=== PATIENT | female | born 1995 ===

== ENCOUNTER → 2020-11-18 09:04 | Outpatient (BNVA) | payer OTHER, SELFPAY | PROVIDERS: Visit Provider Obstetrics & Gynecology | DX: N83.209 Unspecified ovarian cyst, unspecified side (principal) | CPT/HCPCS: 99212 ==

== ENCOUNTER 2020-12-02 13:02 | Outpatient (REF) | payer OTHER, SELFPAY ==
--- NOTE | ~2020-12-02 | US_ITS ---
EXAMINATION: US PELVIS TRANSVAGINAL CLINICAL INFORMATION: Ovarian cyst. COMPARISON: None. TECHNIQUE: Transcutaneous and transvaginal pelvic ultrasound. Transvaginal scanning was performed after voiding to better evaluate the endometrium and adnexa. FINDINGS: The uterus measures 8.4 x 4.1 x 4.7 cm. The uterus is anteverted. No suspicious abnormalities region of the cervix. The uterine contour is smooth. The endometrium measures 0.3 cm. IUD appears in good position. No focal abnormalities within the myometrium. The right ovary measures approximately 3.5 x 2.4 x 2.4 cm. The calculated right ovarian volume is approximately 10.6 mL. Within the right ovary, there appears be a corpus luteal cyst measuring 1.6 x 1.2 x 1.3 cm in size. Normal vascularity is present. The left ovary measures 2.6 x 2.5 x 1.7 cm. The calculated left ovarian volume is approximately 5.8 mL. No abnormal left adnexal masses. There is normal vascularity present. There is a small amount of free pelvic fluid. US/US pelvic and transvaginal IMPRESSION: IUD in place. Right corpus luteal cyst. Small amount of free fluid in the cul-de-sac.
== END 2020-12-02 13:03 | disposition home or self-care (01) ==
LOC: HO.US 13:02
PROVIDERS: Visit Provider Obstetrics & Gynecology
DX: N83.209 Unspecified ovarian cyst, unspecified side (principal)
CPT/HCPCS: 76830; 76856

== ENCOUNTER → 2020-12-09 11:47 | Outpatient (BNVA) | payer OTHER, SELFPAY | PROVIDERS: Visit Provider Obstetrics & Gynecology ==

== ENCOUNTER 2021-02-19 14:30 | Outpatient (REF) | payer OTHER, SELFPAY ==
[2021-02-20 12:59] LABS: CT PCR NOT DETECTED (Not Detect.); NG PCR NOT DETECTED (Not Detect.)
[2021-02-20 13:03] LABS: BV Int Neg Control Negative (Negative); BV Int Pos Control Positive (Positive)
== END 2021-02-19 14:31 | disposition home or self-care (01) ==
LOC: HO.LAB 14:30
PROVIDERS: Visit Provider Advanced Practice Midwife
DX: Z01.419 Encounter for gynecological examination (general) (routine) without abnormal findings (principal); Z11.3 Encounter for screening for infections with a predominantly sexual mode of transmission; Z20.2 Contact with and (suspected) exposure to infections with a predominantly sexual mode of transmission
CPT/HCPCS: 87480; 87491; 87510; 87591; 87660; 88142

== ENCOUNTER 2021-12-30 11:59 | Emergency (ER) | payer OTHER, SELFPAY ==
--- NOTE | ~2021-12-30 | US_ITS ---
EXAMINATION: US OBSTETRICAL ULTRASOUND CLINICAL INFORMATION: Vaginal bleeding. COMPARISON: None. LMP: Unknown. Gestational age by maternal dates is unknown. Estimated date of delivery by maternal dates is unknown. TECHNIQUE: Routine transabdominal imaging of pelvis is performed. FINDINGS: There is a single intrauterine gestational sac with visible yolk sac, embryo/fetus, and cardiac activity. There is no significant subchorionic hemorrhage or hematoma. HR: 169 beats per minute. CRL (crown rump length): 1.44 cm with gestational age of 7 weeks 6 days +/- 4 days). LETI (estimated date of delivery): 08/12/2022 +/- 4 days. MATERNAL ADNEXA: The right maternal ovary measures 8.0 x 6.3 x 6.0 cm. There is anechoic cyst measuring 6.7 x 5.5 x 5.6 cm. Normal Doppler flow seen. The left maternal ovary measures 4.7 x 3.6 x 3.4 cm. There is anechoic cyst measuring 3.1 x 3.0 x 2.8 cm. Normal Doppler flow seen. There is no significant maternal adnexal mass. No maternal pelvic ascites. US/US OB <= 14 weeks fetus IMPRESSION: 1. Single intrauterine gestation with ultrasound gestational age of 7 weeks 6 days +/- 4 days. 2. Estimated date of delivery is 08/12/2022 +/- 4 days. 3. No maternal adnexal mass or pelvic ascites.
[2021-12-30 13:36] VITALS: BP 114/61; PULSE 80; RESP 18; TEMP 36.3; O2SAT 100; BMI 25.7
[2021-12-30 14:40] LABS: MANUAL DIFF FLAG NO
[2021-12-30 14:41] LABS: Basophils Percent Auto 0.3 % (0-2); Eosinophils Percent Auto 0.1 % (0-4); Hematocrit 36.8 % (37.0-47.0); Hemoglobin 12.1 g/dl (12.0-16.0); Imm Gran Abs Auto 0.01 X10*3/uL (0.00-0.03); Imm Gran Pct Auto 0.1 % (0.0-0.4); Lymphocytes Absolute Auto 1.7 X10*3/uL (1.2-4.9); Lymphocytes Percent Auto 21.9 % (20-40); Mean Corpuscular HGB Conc 32.9 g/dl (31.0-35.0); Mean Corpuscular Hemoglobin 27.6 pg (27.0-33.0); Mean Corpuscular Volume 83.8 fL (80.0-98.0); Mean Platelet Volume 10.5 fL (9.4-12.3); Monocytes Absolute Auto 0.9 X10*3/uL (0.1-1.2); Neutrophils Absolute Auto 5.1 x10*3/uL (2.0-8.3); Neutrophils Percent Auto 66.6 % (45-73); Platelet Count 280 X10*3/uL (160-400); Red Blood Count 4.39 X10*6/uL (4.20-5.50); Red Cell Distribution Width 12.7 % (11.0-16.0); White Blood Count 7.7 X10*3/uL (4.8-10.8)
[2021-12-30 14:42] LABS: UPreg QC Valid YES; Urine Pregnancy POSITIVE (NEGATIVE)
[2021-12-30 14:56] LABS: Alanine Aminotransferase 19 U/L (0-31); Albumin Level 4.4 g/dL (3.5-5.0); Alkaline Phosphatase 87 U/L (39-117); Anion Gap 11 (12-20); Aspartate Amino Transferase 16 U/L (5-31); Bilirubin Total 0.2 mg/dL (0.0-1.0); Blood Urea Nitrogen 7 mg/dL (9-16); Calcium 9.9 mg/dL (8.4-10.2); Carbon Dioxide 25 mmol/L (22-29); Chloride 105 mmol/L (96-108); Estimated Glomerular Filt Rate > 60; Glucose Random 91 mg/dL (60-115); Potassium 3.9 mmol/L (3.3-5.1); Sodium 137 mmol/L (135-145)
[2021-12-30 15:27] LABS: HCG Quantitative 67378 mIU/mL
--- NOTE | 2021-12-30 15:33 | ED.PREGNANCY ---
HPI - General Chief complaint: Vaginal Bleeding Stated complaint: w/ vaginal bleeding Time Seen by Provider: 12/30/21 15:32 Source: patient Mode of arrival: ambulatory Limitations: no limitations History of Present Illness HPI Narrative: 26 yo female who is 6 weeks sent to the ER for evaluation of intermittent vaginal spotting for the last 12 days. She reports since 12/18 she went to [facility] ER with vaginal bleeding and she was found to be . She had her IUD removed on 12/21 by her provider at [facility]. She had increased bleeding 2 days after that which improved and then restarted again last week. She went back to [facility] - she was told everything was alright. She reports ongoing bleeding today. She reports moderate amount this morning, and tapered off today. No vaginal discharge. She has had some intermittnet mild cramping as well, right > left - none at this time. MD Complaint: abdominal pain and vaginal bleeding Onset (ago): day(s) (12) Pain Consistency: intermittent Location: pelvis Severity: moderate Quality: Aching Radiation: pelvis Relieving factors: none Exacerbating factors: none Associated symptoms: nausea and vaginal bleeding Vaginal discharge: none Vaginal bleeding: light and heavy Patient : Yes OB History - Previous Pregnancies: miscarriage Related Data : 3 Para: 1 Total number of abortions (spontaneous and elective): 1 Home Medications Medication Instructions Recorded Confirmed levonorgestrel 20 mcg/24 hours (7 INTRAUTERINE 11/18/20// yrs) 52 mg intrauterine device (Mirena) Allergies Allergy/AdvReac Type Severity Reaction Status Date / Time No Known Allergies Allergy Verified 12/30/21 13:36 [No Known Allergies*] Review of Systems Review of Systems: Constitutional: No Fever, No Chills ENT/Mouth: No sore throat, No Rhinorrhea, No Swallowing Difficulty Cardiovascular: No Chest Pain, No SOB Respiratory: No Cough, No Sputum Gastrointestinal: No Nausea, No Vomiting, No Diarrhea, + abdominal Pain, No Hematochezia, No Melena Genitourinary: No Dysuria, No Urinary Frequency, No Hematuria, +Vaginal bleeding Musculoskeletal: No joint pain, No Myalgias Skin: No Skin Lesions, No rash Neuro: No Weakness, No Numbness, No Dizziness, No Headache Heme/Lymph: No Bruising, No Lymphadenopathy PMFSH Past Medical History : 3 Para: 1 Total number of abortions (spontaneous and elective): 1 Social History Social History (Updated 02/19/21 @ 14:42 by Neema Ward [facility]) Alcohol intake: never Patient Tobacco Use Status: Never used Tobacco Smoked in Last 30 Days: No Use of substances other than those prescribed or required for medical reasons: No Advance Directives: No Advance Directives Information Provided: No Patient : Yes Gender identity: Female Physical Exam Vital Signs: Vital Signs: Last Vital Signs Temp 97.3 F 12/30/21 13:36 Pulse 76 12/30/21 16:53 Resp 18 12/30/21 16:53 BP 102/61 12/30/21 16:53 Pulse Ox 100 12/30/21 16:53 BMI result Body Mass Index 25.7 Appearance: Alert. Oriented X3. No acute distress. Eyes: Pupils equal, round and reactive to light. ENT: Pharynx normal. Neck: Normal inspection. Neck supple. CVS: Normal heart rate and rhythm. Pulses normal. Respiratory: No respiratory distress. Breath sounds normal. Abdomen: Soft and nontender. No suprapubic tenderness. +BS x4. pelvic deferred. Skin: Skin warm and dry. Normal skin color. Normal skin turgor. No rashes. Extremities: No lower extremity edema. Neuro: Oriented X 3. Nonfocal. grossly normal. Course Course Course Narrative: 26 y/o female with intermittent vaginal bleeding who is 6 weeks . No current abdominal pain or cramping. HCG is 67,378, no known prior. Will try to get [employer] records. Blood type O+. OB U/S pending. Reevaluation(s) Reevaluation #1: Signed out to Lashanda ALVAREZ who will follow up U/S. MDM - OB/Uterine Contractions Lab Data Result diagrams: 12/30/21 14:29 12/30/21 14:28 Labs: Lab Results 12/30/21 12/30/21 12/30/21 Range/Units 14:26 14:28 14:28 WBC (4.8-10.8) X10*3/uL RBC (4.20-5.50) X10*6/uL Hgb (12.0-16.0) g/dl Hct (37.0-47.0) % MCV (80.0-98.0) fL MCH (27.0-33.0) pg MCHC (31.0-35.0) g/dl RDW (11.0-16.0) % Plt Count (160-400) X10*3/uL MPV (9.4-12.3) fL Immature Gran % (Auto) (0.0-0.4) % Neut % (Auto) (45-73) % Lymph % (Auto) (20-40) % [place] % (Auto) (2-11) % Eos % (Auto) (0-4) % Baso % (Auto) (0-2) % Lymph # (Auto) (1.2-4.9) X10*3/uL [place] # (Auto) (0.1-1.2) X10*3/uL Eos # (Auto) (0.0-0.4) X10*3/uL Baso # (Auto) (0.0-0.2) X10*3/uL Abs Immat Gran (auto) (0.00-0.03) X10*3/uL Absolute Neuts (auto) (2.0-8.3) x10*3/uL Absolute Nucleated RBC (0.0-0.012) X10*3/uL Nucleated RBC % (auto) (0.0-0.2) /100WBC Sodium 137 (135-145) mmol/L Potassium 3.9 (3.3-5.1) mmol/L Chloride 105 (96-108) mmol/L Carbon Dioxide 25 (22-29) mmol/L Anion Gap 11 L (12-20) BUN 7 L (9-16) mg/dL Creatinine 0.70 (0.5-1.4) mg/dL Estim Creat Clear Calc 110.0 Estimated GFR > 60 Random Glucose 91 (60-115) mg/dL Calcium 9.9 (8.4-10.2) mg/dL Total Bilirubin 0.2 (0.0-1.0) mg/dL AST 16 (5-31) U/L ALT 19 (0-31) U/L Alkaline Phosphatase 87 (39-117) U/L Total Protein 8.0 (6.5-8.0) g/dL Albumin 4.4 (3.5-5.0) g/dL Beta HCG, Quant 74875 mIU/mL Urine Test POSITIVE H (NEGATIVE) Blood Type 12/30/21 12/30/21 Range/Units 14:29 16:47 WBC 7.7 (4.8-10.8) X10*3/uL RBC 4.39 (4.20-5.50) X10*6/uL Hgb 12.1 (12.0-16.0) g/dl Hct 36.8 L (37.0-47.0) % MCV 83.8 (80.0-98.0) fL MCH 27.6 (27.0-33.0) pg MCHC 32.9 (31.0-35.0) g/dl RDW 12.7 (11.0-16.0) % Plt Count 280 (160-400) X10*3/uL MPV 10.5 (9.4-12.3) fL Immature Gran % (Auto) 0.1 (0.0-0.4) % Neut % (Auto) 66.6 (45-73) % Lymph % (Auto) 21.9 (20-40) % [place] % (Auto) 11.0 (2-11) % Eos % (Auto) 0.1 (0-4) % Baso % (Auto) 0.3 (0-2) % Lymph # (Auto) 1.7 (1.2-4.9) X10*3/uL [place] # (Auto) 0.9 (0.1-1.2) X10*3/uL Eos # (Auto) 0.0 (0.0-0.4) X10*3/uL Baso # (Auto) 0.0 (0.0-0.2) X10*3/uL Abs Immat Gran (auto) 0.01 (0.00-0.03) X10*3/uL Absolute Neuts (auto) 5.1 (2.0-8.3) x10*3/uL Absolute Nucleated RBC 0.000 (0.0-0.012) X10*3/uL Nucleated RBC % (auto) 0.0 (0.0-0.2) /100WBC Sodium (135-145) mmol/L Potassium (3.3-5.1) mmol/L Chloride (96-108) mmol/L Carbon Dioxide (22-29) mmol/L Anion Gap (12-20) BUN (9-16) mg/dL Creatinine (0.5-1.4) mg/dL Estim Creat Clear Calc Estimated GFR Random Glucose (60-115) mg/dL Calcium (8.4-10.2) mg/dL Total Bilirubin (0.0-1.0) mg/dL AST (5-31) U/L ALT (0-31) U/L Alkaline Phosphatase (39-117) U/L Total Protein (6.5-8.0) g/dL Albumin (3.5-5.0) g/dL Beta HCG, Quant mIU/mL Urine Test (NEGATIVE) Blood Type O Positive Critical Care Time Critical Care Time Critical Care Time: No Discharge Plan Discharge Clinical Impression: Vaginal bleeding Patient Disposition: Home, Self-Care Instructions: Threatened Miscarriage (ED) Additional Instructions: Your HCG ( hormone) was 67,378. Your ultrasound showed Recommend repeating your HCG levels in 2 days. Follow up with your [employer] tomorrow - name and number below Prescriptions: No Action Mirena 20 mcg/24 hours (6 yrs) 52 mg intrauterine device intrauterine 0RF Referrals: Eric Osuna MD [Physician] - (vag bleeding, 6 weeks )
[2021-12-30 16:53] VITALS: BP 102/61; PULSE 76; RESP 18; O2SAT 100
--- NOTE | 2021-12-30 17:07 | PC.NURSE ---
Pt is a 26 y/o female pt galeas x 4 speaking in full and complete sentences. Pt presented to ED after advisement of stock tracer due to intermittent bleeding over the last 10+ days. Pt reports 7/10 lower abd pain. Pt states she had bleeding with urination this am. Pt denies any burning with urination. Pt reports intermittent bleeding is pink ot bright red.
[2021-12-30 19:47] LABS: MANUAL DIFF FLAG NO
[2021-12-30 19:50] LABS: Basophils Percent Auto 0.3 % (0-2); Eosinophils Percent Auto 0.4 % (0-4); Hematocrit 35.3 % (37.0-47.0); Hemoglobin 11.9 g/dl (12.0-16.0); Imm Gran Abs Auto 0.02 X10*3/uL (0.00-0.03); Imm Gran Pct Auto 0.3 % (0.0-0.4); Lymphocytes Percent Auto 25.6 % (20-40); Mean Corpuscular HGB Conc 33.7 g/dl (31.0-35.0); Mean Corpuscular Hemoglobin 27.9 pg (27.0-33.0); Mean Corpuscular Volume 82.9 fL (80.0-98.0); Mean Platelet Volume 10.5 fL (9.4-12.3); Monocytes Absolute Auto 0.7 X10*3/uL (0.1-1.2); Monocytes Percent Auto 9.6 % (2-11); Neutrophils Absolute Auto 4.9 x10*3/uL (2.0-8.3); Neutrophils Percent Auto 63.8 % (45-73); Platelet Count 255 X10*3/uL (160-400); Red Blood Count 4.26 X10*6/uL (4.20-5.50); Red Cell Distribution Width 12.8 % (11.0-16.0); White Blood Count 7.7 X10*3/uL (4.8-10.8)
[2021-12-30 19:59] VITALS: BP 108/63; PULSE 69; RESP 16; TEMP 36.9; O2SAT 98
== END 2021-12-30 20:16 | disposition home or self-care (01) ==
PROVIDERS: Physician Assistant; Emergency Provider Emergency Medicine
DX: O20.9 Hemorrhage in early pregnancy, unspecified (principal); Z3A.01 Less than 8 weeks gestation of pregnancy
CPT/HCPCS: 36415; 76801; 80053; 81025; 84702; 85025; 86900; 86901; 99284

== ENCOUNTER → 2022-01-07 15:16 | Outpatient (BNVA) | payer OTHER, SELFPAY | PROVIDERS: Visit Provider Advanced Practice Midwife | DX: Z13.89 Encounter for screening for other disorder (principal) ==

== ENCOUNTER 2023-03-22 08:12 | Outpatient (AMB) | payer OTHER, SELFPAY ==
--- NOTE | 2023-03-22 08:19 | A.OFFVIS_ITS ---
Intake Vital Signs 03/22/23 08:25 Height 5 ft 3 in Weight 152 lb BMI 26.9 BP 110/68 Intake Visit Reasons: Ovarian cyst ok per Dr. Osuna Locker Room Manager Required: Yes Locker Room Manager Language: Agronomy Technician Name: Rosa RUCKER Information Interpreted: non-clinical & clinical Accompanied by: Self / Same As Patient Allergies No Known Allergies [No Known Allergies*] Allergy (Verified 03/22/23 08:26) Is last menstrual period known: No HPI HPI Comments History of Present Illness Details Presenting referred from [facility] for ovarian cyst seen on ultrasound ordered in an outside facility which showed a right simple ovarian cyst measuring 4.8 x 4.5 cm and a left 3.1 x 2.8 simple ovarian cyst. The patient is complaining of amenorrhea since last June after an SAB was started on control patches and since then has not had any menstrual cycles. No associated galactorrhea or hair growth PFSH Social History Alcohol intake: never Patient Tobacco Use Status: Never used Tobacco Gender identity: Female Female Reproductive History Menstrual Age of Menarche: 13 control method: patch Review of Systems Const All systems reviewed & are unremarkable except as noted in HPI and below Physical Exam Vital Signs: Last Vital Signs BP 110/68 03/22/23 08:25 BMI result Body Mass Index 26.9 General: Yes no CVA tenderness External Female Exam: normal external appearance and normal appearance of the urethra Speculum Exam - Vagina: normal appearance of the vagina, normal palpation, no lesions and no masses Speculum Exam - Cervix: normal appearance of the cervix, normal palpation, no lesions, no masses and nontender Bimanual exam- vagina & uterus: normal bimanual exam, normal palpation, uterine size normal, normal palpation, uterine shape normal, No Cervical tenderness present and non-tender Bimanual Exam- Adnexa, other: normal adnexae Back/Spine/Pelvis Back: no CVA tenderness Results AMB Test Urine AMB Test Urine Negative Last Edit by Rosa Zapata CMA on 08:28 Assessment & Plan Assessment & Plan (1) Amenorrhea: Comment: Possible intrauterine adhesions secondary to previous suction D&C Code(s): N91.2 - Amenorrhea, unspecified Plan: Urine test done in the office was negative. Discussed with the patient the possible causes of amenorrhea including but not limited to anovulation, thyroid and prolactin disorders, , end organ problems (uterine synechiae), medication side effects and others. The workup includes to start with UPT which was done and was negative this will be followed by discontinuing control patch and placing it with ParaGard IUD, will order day 7 after removing the patch TSH, PRL , FSH/LH and will follow-up afterwards. If all within normal consider hysterosalpingogram to rule out intrauterine adhesions secondary to previous suction D&C (2) Ovarian cyst: Code(s): N83.209 - Unspecified ovarian cyst, unspecified side Plan: Will order pelvic ultrasound check the results and treat accordingly. Instructions given the patient to schedule a follow-up appointment in 2 weeks (3) Family planning: Code(s): Z30.09 - Encounter for other general counseling and advice on contraception Plan: Discussed with the patient the different options of control including control pills/Nuvaring, DMPA, different types of IUD ?s. All the pros, cons, risks and benefits of each were discussed with the patient. The patient decided to go ahead with an IUD, so a more detailed discussion was carried on including types (Progesterone, Copper), mechanism of action, risks (infection, uterine perforation, failure with ectopic , septic AB, dysmenorrhea with Paraguard, others) benefits (efficient contraceptive method, hypo menorrhea with Progesterone IUD, others) GC/CG were taken and ParaGard IUD insertion attempted, intrauterine resistant was met during the insertion of the IUD , suspicious of intrauterine adhesions secondary to previous D&C. Procedure was aborted Orders: Orders US pelvic complete Today N83.209 - Unspecified ovarian cyst, unspecified side Follicle Stimulating Hormone Today N91.2 - Amenorrhea, unspecified HCG Quantitative Today N91.2 - Amenorrhea, unspecified Lutenizing Hormone Today N91.2 - Amenorrhea, unspecified Prolactin Today N91.2 - Amenorrhea, unspecified TSH reflex Free T4 Today N91.2 - Amenorrhea, unspecified AMB HCG Urine Test Today Z32.02 - Encounter for test, result negative Coding Level of Care Code New Pt Level 3 (80865) Diagnoses Amenorrhea N91.2 Ovarian cyst N83.209 Family planning Z30.09
[2023-03-22 08:25] VITALS: BP 110/68; BMI 26.9
== END 2023-03-22 08:59 | disposition home or self-care (01) ==
LOC: HO.HWS 08:12
PROVIDERS: Visit Provider Obstetrics & Gynecology
DX: N91.2 Amenorrhea, unspecified (principal); N83.209 Unspecified ovarian cyst, unspecified side; Z30.09 Encounter for other general counseling and advice on contraception; Z32.02 Encounter for pregnancy test, result negative
CPT/HCPCS: 99203

== ENCOUNTER 2023-03-22 08:12 | Outpatient (REF) | payer OTHER, SELFPAY ==
[2023-03-23 09:04] LABS: CT PCR NOT DETECTED (Not Detect.); NG PCR NOT DETECTED (Not Detect.)
== END 2023-03-22 08:13 | disposition home or self-care (01) ==
LOC: HO.LNP 08:12
PROVIDERS: Visit Provider Obstetrics & Gynecology
DX: N83.209 Unspecified ovarian cyst, unspecified side (principal); Z32.02 Encounter for pregnancy test, result negative; Z20.2 Contact with and (suspected) exposure to infections with a predominantly sexual mode of transmission
CPT/HCPCS: 0353U; 81025

== ENCOUNTER 2023-04-03 12:45 | Outpatient (REF) | payer OTHER, SELFPAY ==
--- NOTE | ~2023-04-03 | US_ITS ---
EXAMINATION: US PELVIS CLINICAL INFORMATION: Ovarian cysts, unknown last menstrual period, on control. COMPARISON: 12/03/2020 TECHNIQUE: Ultrasound of the pelvis is performed using both transabdominal and transvaginal transducers along with Doppler. Transvaginal imaging is performed due to inadequate visualization transabdominally. Limited visualization on transabdominal ultrasound images due to suboptimal bladder distention. FINDINGS: Uterus: The uterus is anteverted and measures 8.0 x 4.1 x 5.0 cm. The double wall endometrial thickness is 0.14 cm. The uterus is smooth in contour and has normal myometrial echogenicity. No visible fibroid. Adnexa: Bilateral ovaries are unremarkable. There is no pelvic ascites or fluid collection. Right ovary measures 2.7 x 2.2 x 1.6 cm. Volume 4.8 mL. Left ovary measures 2.7 x 2.2 x 1.8 cm. Volume 5.6 mL. US/US pelvic complete IMPRESSION: 1. Unremarkable bilateral ovaries. Interval resolution of previously seen right ovarian cysts. Limited visualization of the ovaries due to bowel gas. 2. Endometrial wall thickness is 0.14 cm. 3. No discrete fibroids. 4. No significant free fluid.
== END 2023-04-03 12:46 | disposition home or self-care (01) ==
LOC: HO.US 12:45
PROVIDERS: Visit Provider Obstetrics & Gynecology
DX: N83.209 Unspecified ovarian cyst, unspecified side (principal)
CPT/HCPCS: 76856

== ENCOUNTER 2023-04-12 17:15 | Outpatient (REF) | payer OTHER, SELFPAY ==
[2023-04-12 19:06] LABS: HCG Quantitative < 2 mIU/mL
[2023-04-13 23:03] LABS: Follicle Stimulating Hormone 5.2 mIU/mL; Lutenizing Hormone 5.6 mIU/mL; Prolactin 4.4 ng/mL
== END 2023-04-12 17:16 | disposition home or self-care (01) ==
LOC: HO.LAB 17:15
PROVIDERS: Visit Provider Obstetrics & Gynecology
DX: N91.2 Amenorrhea, unspecified (principal)
CPT/HCPCS: 36415; 83001; 83002; 84146; 84443; 84702

== ENCOUNTER 2023-05-16 15:23 | Outpatient (AMB) | payer OTHER, MEDICAID, SELFPAY ==
[2023-05-16 15:40] VITALS: BP 100/64
--- NOTE | 2023-05-16 15:40 | MHC.OFFVIS ---
Intake Vital Signs 05/16/23 15:40 Height 5 ft 3 in BP 100/64 Intake Visit Reasons: US follow up Production Sorter Required: Yes Production Sorter Name: Rosa RUCKER Information Interpreted: non-clinical & clinical Allergies No Known Allergies [No Known Allergies*] Allergy (Verified 05/16/23 15:42) HPI HPI Comments History of Present Illness Details Presenting for a follow-up. The patient discontinued her control patch and had positive withdrawal bleed. TSH, prolactin, hCG or within normal. FSH/LH= 5.2/5.6 Pelvic ultrasound showed the followin. Unremarkable bilateral ovaries. Interval resolution of previously seen right ovarian cysts. Limited visualization of the ovaries due to bowel gas. 2. Endometrial wall thickness is 0.14 cm. 3. No discrete fibroids. 4. No significant free fluid. [facility] Social History Alcohol intake: never Patient Tobacco Use Status: Never used Tobacco Gender identity: Female Female Reproductive History Menstrual Age of Menarche: 13 Review of Systems Const All systems reviewed & are unremarkable except as noted in HPI and below Reports as per HPI and Reports no additional complaints GI Reports no additional complaints Reports no additional complaints Physical Exam Vital Signs: Last Vital Signs BP 100/64 05/16/23 15:40 Assessment & Plan Assessment & Plan (1) Family planning: Code(s): Z30.09 - Encounter for other general counseling and advice on contraception Plan: Discussed with the patient the different options of control including control pills/Nuvaring, Depo Medroxy Progesterone Acetate, IUD ( levonorgestrel, Copper), sterilization. All the pros, cons, risks and benefits of each were discussed with the patient. The patient decided to go ahead with [facility] so a more detailed discussion re: control pills including mechanism of action, benefits (regular menses, less dysmenorrhea, less risk of ovarian cancer, ...), risks ( DVT, PE, Strokes, [place], increased breast ca, others). Instructions were given to use a back- up method for contraception x 1st 2 weeks, and to schedule a 3 months appointment for blood pressure check (2) Ovarian cyst: Code(s): N83.209 - Unspecified ovarian cyst, unspecified side Plan: Discussed with the patient ultrasound findings showing the previously identified ovarian cyst has resolved. The patient was instructed to call if symptoms recur. All questions were answered the patient verbalized understanding. (3) Amenorrhea: Code(s): N91.2 - Amenorrhea, unspecified Plan: Discussed with the patient the results of the workup all within normal and since she had a positive withdrawal bleed after discontinuation of the control patch, the diagnosis is amenorrhea secondary to anovulation or long-term use of the patch. All questions answered, the patient verbalized understanding Medications: New desogestrel-ethinyl estradiol 0.15-0.03 mg (Apri) 1 tab PO DAILY 28 days 28 tabs 2RF Coding Level of Care Code Est Pt Level 3 (22572) Diagnoses Family planning Z30.09 Ovarian cyst N83.209 Amenorrhea N91.2
== END 2023-05-16 16:10 | disposition home or self-care (01) ==
PROVIDERS: Visit Provider Obstetrics & Gynecology
DX: Z30.09 Encounter for other general counseling and advice on contraception (principal); N83.209 Unspecified ovarian cyst, unspecified side; N91.2 Amenorrhea, unspecified
CPT/HCPCS: 99213

== ENCOUNTER → 2023-05-16 15:23 | Outpatient (BNVA) | payer OTHER, SELFPAY | PROVIDERS: Visit Provider Obstetrics & Gynecology ==

== ENCOUNTER 2023-07-28 11:32 | Outpatient (REF) | payer OTHER, SELFPAY ==
[2023-07-28 13:24] LABS: MANUAL DIFF FLAG NO
[2023-07-28 13:36] LABS: Basophils Percent Auto 0.3 % (0-2); Eosinophils Absolute Auto 0.1 X10*3/uL (0.0-0.4); Eosinophils Percent Auto 1.2 % (0-4); Hematocrit 39.8 % (37.0-47.0); Hemoglobin 12.9 g/dl (12.0-16.0); Imm Gran Abs Auto 0.02 X10*3/uL (0.00-0.03); Imm Gran Pct Auto 0.3 % (0.0-0.4); Lymphocytes Percent Auto 26.6 % (20-40); Mean Corpuscular HGB Conc 32.4 g/dl (31.0-35.0); Mean Corpuscular Hemoglobin 27.4 pg (27.0-33.0); Mean Corpuscular Volume 84.7 fL (80.0-98.0); Mean Platelet Volume 11.1 fL (9.4-12.3); Monocytes Absolute Auto 0.3 X10*3/uL (0.1-1.2); Monocytes Percent Auto 4.4 % (2-11); Neutrophils Absolute Auto 5.1 x10*3/uL (2.0-8.3); Neutrophils Percent Auto 67.2 % (45-73); Platelet Count 349 X10*3/uL (160-400); Red Cell Distribution Width 12.4 % (11.0-16.0); White Blood Count 7.6 X10*3/uL (4.8-10.8)
[2023-07-28 13:56] LABS: Alanine Aminotransferase 59 U/L (0-31); Albumin Level 4.7 g/dL (3.5-5.0); Alkaline Phosphatase 107 U/L (39-117); Anion Gap 13 (12-20); Aspartate Amino Transferase 48 U/L (5-31); Bilirubin Total 0.3 mg/dL (0.0-1.0); Blood Urea Nitrogen 11 mg/dL (9-16); Calcium 10.1 mg/dL (8.4-10.2); Carbon Dioxide 23 mmol/L (22-29); Chloride 106 mmol/L (96-108); Cholesterol 283 mg/dL (<200); Estimated Glomerular Filt Rate > 60; Glucose Random 87 mg/dL (60-115); HDL Cholesterol 50 mg/dL (>40); LDL Cholesterol Calculated 185 mg/dL (<100); Lactate Dehydrogenase 242 U/L (122-220); Potassium 3.9 mmol/L (3.3-5.1); Sodium 138 mmol/L (135-145); Total Protein 8.9 g/dL (6.5-8.0); Triglycerides 242 mg/dL (<150)
[2023-07-28 14:22] LABS: Folate 14.8 ng/mL (> or = 4.0); Vitamin B12 459 pg/mL (200-900)
[2023-07-28 21:48] LABS: Haptoglobin 149 MG/DL ((30-200))
== END 2023-07-28 11:33 | disposition home or self-care (01) ==
LOC: HO.HHCL 11:32
PROVIDERS: Visit Provider Student in an Organized Health Care Education/Training Program
DX: D50.9 Iron deficiency anemia, unspecified (principal); E78.5 Hyperlipidemia, unspecified
CPT/HCPCS: 36415; 80053; 80061; 82607; 82746; 83010; 83615; 85025

== ENCOUNTER 2023-08-17 15:38 | Outpatient (AMB) | payer OTHER, SELFPAY ==
[2023-08-17 15:45] VITALS: BP 98/60; BMI 26.6
--- NOTE | 2023-08-17 15:45 | A.OFFVIS_ITS ---
Intake Vital Signs 08/17/23 15:45 Height 5 ft 3 in Weight 150 lb BMI 26.6 BP 98/60 Intake Visit Reasons: 3 month Control Follow up Associate Agent Insurance Sales Required: Yes Associate Agent Insurance Sales Language: Underbaster Name: Rosa RUCKER Information Interpreted: non-clinical & clinical Accompanied by: Self / Same As Patient Allergies No Known Allergies [No Known Allergies*] Allergy (Verified 08/17/23 15:47) Is last menstrual period known: Yes Last menstrual period: 08/01/23 HPI HPI Comments History of Present Illness Details Presenting for 3 months control follow-up with no complaints. The patient is menstrual cycle are regular and light with no concern, the patie nt is requesting refill on her control pills [facility] Social History Alcohol intake: never Patient Tobacco Use Status: Never used Tobacco Gender identity: Female Female Reproductive History Menstrual Age of Menarche: 13 Date of last menstrual period: 08/01/23 control method: pills Review of Systems Const All systems reviewed & are unremarkable except as noted in HPI and below Reports as per HPI and Reports no additional complaints GI Reports no additional complaints Reports no additional complaints Physical Exam Vital Signs: Last Vital Signs BP 98/60 08/17/23 15:45 BMI result Body Mass Index 26.6 Assessment & Plan Assessment & Plan (1) Contraceptive management: Code(s): Z30.9 - Encounter for contraceptive management, unspecified Plan: control pills prescription refill sent to the patient's pharmacy. All questions answered, the patient verbalized understanding. Medications: Refilled desogestrel-ethinyl estradiol 0.15-0.03 mg (Apri) 1 tab PO DAILY 28 tabs 7RF 28 days Coding Level of Care Code Est Pt Level 3 (37893) Diagnoses Contraceptive management Z30.9
== END 2023-08-17 15:53 | disposition home or self-care (01) ==
LOC: HO.HWS 15:38
PROVIDERS: Visit Provider Obstetrics & Gynecology
DX: Z30.9 Encounter for contraceptive management, unspecified (principal)
CPT/HCPCS: 99213

== ENCOUNTER → 2023-08-17 15:38 | Outpatient (BNVA) | payer OTHER, SELFPAY | PROVIDERS: Visit Provider Obstetrics & Gynecology ==

== ENCOUNTER 2024-02-09 10:55 | Outpatient (REF) | payer MEDICAID, SELFPAY ==
[2024-02-09 13:32] LABS: Estimated Average Glucose 103 mg/dL; Hemoglobin A1c % 5.2 % (<6.0)
[2024-02-09 13:47] LABS: Hematocrit 37.8 % (37.0-47.0); Hemoglobin 12.5 g/dl (12.0-16.0); Mean Corpuscular HGB Conc 33.1 g/dl (31.0-35.0); Mean Corpuscular Hemoglobin 27.4 pg (27.0-33.0); Mean Corpuscular Volume 82.7 fL (80.0-98.0); Mean Platelet Volume 11.1 fL (9.4-12.3); Platelet Count 343 X10*3/uL (160-400); Red Blood Count 4.57 X10*6/uL (4.20-5.50); Red Cell Distribution Width 12.2 % (11.0-16.0); White Blood Count 5.1 X10*3/uL (4.8-10.8)
[2024-02-09 14:05] LABS: Alanine Aminotransferase 109 U/L (0-31); Albumin Level 4.6 g/dL (3.5-5.0); Alkaline Phosphatase 113 U/L (39-117); Anion Gap 13 (12-20); Aspartate Amino Transferase 58 U/L (5-31); Bilirubin Total 0.3 mg/dL (0.0-1.0); Blood Urea Nitrogen 10 mg/dL (9-16); Calcium 9.6 mg/dL (8.4-10.2); Carbon Dioxide 22 mmol/L (22-29); Chloride 108 mmol/L (96-108); Cholesterol 309 mg/dL (<200); Estimated Glomerular Filt Rate > 60; Glucose Random 93 mg/dL (60-115); HDL Cholesterol 49 mg/dL (>40); LDL Cholesterol Calculated 226 mg/dL (<100); Potassium 4.6 mmol/L (3.3-5.1); Sodium 138 mmol/L (135-145); Total Protein 8.2 g/dL (6.5-8.0); Triglycerides 173 mg/dL (<150)
[2024-02-09 14:12] LABS: Syphilis Screen Nonreactive (Nonreactive)
[2024-02-09 14:14] LABS: HBS Num1 > 1000.00 mIU/mL (0-7.99); HBc Num1 0.08 S/CO (0.00-0.79); HBsAGNum1 0.29 S/CO (0.00-0.99); HIV AB/AG Nonreactive (Nonreactive); HIV Num 1 0.05 S/CO (0.00-0.99); Hepatitis B Core Antibody Nonreactive (Nonreactive); Hepatitis B Surface Antigen Negative (Negative); ~HepC Num1 0.09 S/CO (0.00-0.79); ~Hepatitis B Surface Antibody REACTIVE (Nonreactive); ~Hepatitis C Antibody Nonreactive (Nonreactive)
[2024-02-09 14:18] LABS: TSH reflex Free T4 1.72 uIU/mL (0.32-4.0)
[2024-02-09 15:19] LABS: CT PCR NOT DETECTED (Not Detect.); NG PCR NOT DETECTED (Not Detect.)
== END 2024-02-09 10:56 | disposition home or self-care (01) ==
LOC: HO.HHCL 10:55
PROVIDERS: Visit Provider Student in an Organized Health Care Education/Training Program
DX: Z00.00 Encounter for general adult medical examination without abnormal findings (principal)
CPT/HCPCS: 36415; 80053; 80061; 83036; 84443; 85027; 86704; 86706; 86780; 86803; 87340; 87389; 87491; 87591

== ENCOUNTER 2024-03-11 15:31 | Outpatient (AMB) | payer MEDICAID, SELFPAY ==
[2024-03-11 16:09] VITALS: BP 118/76; BMI 26.6
--- NOTE | 2024-03-11 16:09 | A.OFFVIS_ITS ---
Vital Signs 03/11/24 16:09 Height 5 ft 3 in Weight 150 lb BMI 26.6 BP 118/76 Intake Visit Reasons: Annual Allergies No Known Allergies [No Known Allergies*] Allergy (Verified 08/17/23 15:47) HPI Comments Details: Presenting for annual exam. No complaints. Last Pap was negative in 02/24 [facility] Social History Alcohol intake: never Patient Tobacco Use Status: Never used Tobacco Gender identity: Female Female Reproductive History Menstrual Age of Menarche: 13 Review of Systems Const All systems reviewed & are unremarkable except as noted in HPI and below Card Reports as per HPI Resp Reports as per HPI GI Reports as per HPI and Reports no additional complaints Reports as per HPI Physical Exam Const General: cooperative, healthy appearing and comfortable Chest Chest palpation & inspection: normal inspection of the chest and normal palpation of entire chest wall Breast/axilla inspection: normal inspection of the breasts and normal inspection of the axillae Breast/axilla palpation: normal palpation of the breasts, normal palpation of the axillae and no axillary lymphadenopathy Resp Effort & Inspection: normal respiratory effort Auscultation: clear to auscultation bilaterally Percussion: percussion normal Cardio Palpation: normal PMI Rate: regular rate Rhythm: regular rhythm Heart sounds: no murmurs and no rubs Peripheral pulses: Peripheral pulses 2+ throughout GI Inspection: Yes normal to inspection Palpation (GI): Soft to palpation, nontender, no guarding, not rigid and No hepatosplenomegaly present Percussion: Yes normal to percussion Auscultation: normal bowel sounds Rectal Exam - Female: deferred General: Yes bladder normal to palpation External Female Exam: No lesion Speculum Exam - Vagina: normal appearance of the vagina, normal palpation, normal vaginal discharge and not erythematous Speculum Exam - Cervix: normal appearance of the cervix and normal palpation Bimanual exam- vagina & uterus: normal bimanual exam, normal palpation, uterine size normal, bladder normal to palpation, consistency normal and normal palpation Bimanual Exam- Adnexa, other: normal adnexae, no masses and no tenderness Assessment & Plan Assessment & Plan (1) Well woman exam with routine gynecological exam: Code(s): Z01.419 - Encounter for gynecological examination (general) (routine) without abnormal findings Category: Medical Plan: Pap smear done. Counseled the patient about the recommended dietary allowance of 1000 mg of Calcium & 600 IU of vitamin D. The patient was instructed to perform monthly self-breast exams and to schedule an annual exam in a year; All questions answered and the patient verbalized understanding. Instructed the patient to schedule annual exam in a year Coding Level of Care Code Est Pt Prev Care 18-39y(44948) Diagnoses Well woman exam with routine gynecological exam Z01.419
== END 2024-03-11 17:15 | disposition home or self-care (01) ==
PROVIDERS: Visit Provider Obstetrics & Gynecology
DX: Z01.419 Encounter for gynecological examination (general) (routine) without abnormal findings (principal)
CPT/HCPCS: 99395

== ENCOUNTER 2024-03-11 15:31 | Outpatient (REF) | payer MEDICAID, SELFPAY | END 2024-03-11 15:32 | disposition home or self-care (01) | LOC: HO.LNP 15:31 | PROVIDERS: Visit Provider Obstetrics & Gynecology | DX: Z01.419 Encounter for gynecological examination (general) (routine) without abnormal findings (principal) | CPT/HCPCS: 87625; 88175; 99395 ==

== ENCOUNTER 2024-03-21 10:42 | Outpatient (AMB) | payer MEDICAID, SELFPAY ==
[2024-03-21 10:46] VITALS: BMI 26.6
--- NOTE | 2024-03-21 10:46 | A.OFFVIS_ITS ---
Vital Signs 03/21/24 10:46 Height 5 ft 3 in Weight 149 lb 14.629 oz BMI 26.6 Intake Visit Reasons: follow up ovarian cyst Anthropology Professor Required: Yes Anthropology Professor Language: Traffic Control Officer Services: Anthropology Professor Present (in person) Anthropology Professor Name: Rosa RUCKER Information Interpreted: non-clinical & clinical Accompanied by: Self / Same As Patient Allergies No Known Allergies [No Known Allergies*] Allergy (Verified 03/21/24 10:47) HPI Comments Details: Presenting for pelvic ultrasound regarding previous ovarian cyst . Ultrasound done recently showed the following: Uterus: The uterus is anteverted and measures 8.0 x 4.1 x 5.0 cm. The double wall endometrial thickness is 0.14 cm. The uterus is smooth in contour and has normal myometrial echogenicity. No visible fibroid. Adnexa: Bilateral ovaries are unremarkable. There is no pelvic ascites or fluid collection. Right ovary measures 2.7 x 2.2 x 1.6 cm. Volume 4.8 mL. Left ovary measures 2.7 x 2.2 x 1.8 cm. Volume 5.6 mL. The patient was switched from regular control pills to progesterone only pill by her PCP because her liver function tests and cholesterol triglycerides were elevated, would like to discuss different options of control PFS Social History Alcohol intake: never Patient Tobacco Use Status: Never used Tobacco Gender identity: Female Female Reproductive History Menstrual Age of Menarche: 13 Review of Systems Const All systems reviewed & are unremarkable except as noted in HPI and below Reports as per HPI and Reports no additional complaints GI Reports no additional complaints Reports no additional complaints Physical Exam Vital Signs: BMI result Body Mass Index 26.6 Assessment & Plan Assessment & Plan (1) Ovarian cyst: Code(s): N83.209 - Unspecified ovarian cyst, unspecified side Category: Medical Plan: Discussed with the patient ultrasound findings showing the previously identified ovarian cyst has resolved. The patient was instructed to call if symptoms recur. All questions were answered the patient verbalized understanding. (2) Family planning: Code(s): Z30.09 - Encounter for other general counseling and advice on contraception Category: Social Hx Plan: Discussed with the patient the different options of control including control pills/Nuvaring, DMPA, different types of IUD ?s ( Cu vs Progesterone IUD). All the pros, cons, risks and benefits of each were discussed with the patient. The patient decided to go ahead with Paraguard IUD, so a more detailed discussion about the mechanism of action, risks (infection, uterine perforation, failure with ectopic , septic AB, others) benefits (efficient contraceptive method, others) GC/CG will be taken the day of insertion and the patient was asked to call day one of next cycle for IUD insertion. Meanwhile instructions given the patient to stay on progestin only pill and to take it same time every day. All questions answered, the patient verbalized understanding Coding Level of Care Code Est Pt Level 3 (36366) Diagnoses Ovarian cyst N83.209 Family planning Z30.09
== END 2024-03-21 11:11 | disposition home or self-care (01) ==
PROVIDERS: Visit Provider Obstetrics & Gynecology
DX: N83.209 Unspecified ovarian cyst, unspecified side (principal); Z30.09 Encounter for other general counseling and advice on contraception
CPT/HCPCS: 99213

== ENCOUNTER → 2024-03-21 10:42 | Outpatient (BNVA) | payer MEDICAID, SELFPAY | PROVIDERS: Visit Provider Obstetrics & Gynecology | DX: N83.209 Unspecified ovarian cyst, unspecified side (principal); Z30.09 Encounter for other general counseling and advice on contraception | CPT/HCPCS: 99212 ==

== ENCOUNTER 2024-04-24 11:48 | Outpatient (REF) | payer MEDICAID, SELFPAY ==
[2024-04-24 14:54] LABS: Alanine Aminotransferase 65 U/L (0-31); Albumin Level 4.4 g/dL (3.5-5.0); Alkaline Phosphatase 101 U/L (39-117); Anion Gap 11 (12-20); Aspartate Amino Transferase 41 U/L (5-31); Bilirubin Total 0.3 mg/dL (0.0-1.0); Blood Urea Nitrogen 9 mg/dL (9-16); Carbon Dioxide 24 mmol/L (22-29); Chloride 107 mmol/L (96-108); Cholesterol 203 mg/dL (<200); Estimated Glomerular Filt Rate > 60; Glucose Random 91 mg/dL (60-115); HDL Cholesterol 35 mg/dL (>40); LDL Cholesterol Calculated 145 mg/dL (<100); Potassium 3.8 mmol/L (3.3-5.1); Sodium 138 mmol/L (135-145); Total Protein 8.2 g/dL (6.5-8.0); Triglycerides 115 mg/dL (<150)
== END 2024-04-24 11:49 | disposition home or self-care (01) ==
LOC: HO.HHCL 11:48
PROVIDERS: Visit Provider Student in an Organized Health Care Education/Training Program
DX: E78.5 Hyperlipidemia, unspecified (principal)
CPT/HCPCS: 36415; 80053; 80061

== ENCOUNTER 2024-04-30 14:59 | Outpatient (AMB) | payer MEDICAID, SELFPAY ==
[2024-04-30 15:05] VITALS: BMI 26.6
--- NOTE | 2024-04-30 15:05 | MHC.OFFVIS ---
Vital Signs 04/30/24 15:05 Height 5 ft 3 in Weight 149 lb 14.629 oz BMI 26.6 Intake Visit Reasons: ovarian cyst Modern And Contemporary Art Curator Required: Yes Modern And Contemporary Art Curator Language: Collision Repairer Services: Modern And Contemporary Art Curator Present (in person) Modern And Contemporary Art Curator Name: Rosa RUCKER Information Interpreted: non-clinical & clinical Accompanied by: Self / Same As Patient Allergies No Known Allergies [No Known Allergies*] Allergy (Verified 04/30/24 15:11) HPI Comments Details: Presenting for follow-up from emergency room visit on 04/15/2024. The patient went to the emergency room at [facility] with pelvic pain, she was diagnosed with an ovarian cyst since then her pain has resolved. Records are not available. No additional symptoms no urinary or GI symptoms no vaginal discharge or bleeding [facility], [facility] Social History Alcohol intake: never Patient Tobacco Use Status: Never used Tobacco Gender identity: Female Female Reproductive History Menstrual Age of Menarche: 13 Review of Systems Const All systems reviewed & are unremarkable except as noted in HPI and below Physical Exam Vital Signs: BMI result Body Mass Index 26.6 General: Yes no CVA tenderness External Female Exam: normal external appearance and normal appearance of the urethra Speculum Exam - Vagina: normal appearance of the vagina, normal palpation, no lesions and no masses Speculum Exam - Cervix: normal appearance of the cervix, normal palpation, no lesions, no masses and nontender Bimanual exam- vagina & uterus: normal bimanual exam, normal palpation, uterine size normal, normal palpation, uterine shape normal, No Cervical tenderness present and non-tender Bimanual Exam- Adnexa, other: normal adnexae Back/Spine/Pelvis Back: no CVA tenderness Assessment & Plan Assessment & Plan (1) Ovarian cyst: Code(s): N83.209 - Unspecified ovarian cyst, unspecified side Category: Medical Plan: Urine test done in the office was negative. Repeat Pelvic ultrasound ordered in 4 weeks. Instructions given the patient to schedule an ultrasound follow-up appointment within 4-5 weeks and to call or go to emergency room in case of recurrence of her pelvic pain. All questions answered, the patient verbalized understanding. Orders: Orders US pelvic and transvaginal 4 Weeks N83.209 - Unspecified ovarian cyst, unspecified side Coding Level of Care Code Est Pt Level 3 (21626) Diagnoses Ovarian cyst N83.209
== END 2024-04-30 16:10 | disposition home or self-care (01) ==
PROVIDERS: Visit Provider Obstetrics & Gynecology
DX: Z32.02 Encounter for pregnancy test, result negative (principal); N83.209 Unspecified ovarian cyst, unspecified side
CPT/HCPCS: 99213

== ENCOUNTER 2024-04-30 14:59 | Outpatient (REF) | payer MEDICAID, SELFPAY ==
[2024-05-01 17:01] LABS: CT PCR NOT DETECTED (Not Detect.); NG PCR NOT DETECTED (Not Detect.)
== END 2024-04-30 15:00 | disposition home or self-care (01) ==
LOC: HO.LNP 14:59
PROVIDERS: Visit Provider Obstetrics & Gynecology
DX: N83.209 Unspecified ovarian cyst, unspecified side (principal)
CPT/HCPCS: 81025; 87491; 87591; 99212

== ENCOUNTER 2024-05-28 16:02 | Outpatient (REF) | payer MEDICAID, SELFPAY ==
--- NOTE | ~2024-05-28 | US_ITS ---
EXAMINATION: US PELVIS CLINICAL INFORMATION: Ovarian cysts. COMPARISON: Pelvic ultrasound 04/03/2023. TECHNIQUE: Ultrasound of the pelvis is performed using both transabdominal and transvaginal transducers along with Doppler. Transvaginal imaging is performed due to inadequate visualization transabdominally. FINDINGS: Uterus: The uterus is anteverted and measures 7.7 x 3.4 x 4.4 cm. The double wall endometrial thickness is 4 mm. The uterus is smooth in contour and has normal myometrial echogenicity. No visible fibroid. Nabothian cysts are present. Adnexa: Both ovaries are visualized. There is normal color flow to the adnexa. There is no ovarian torsion. There is no pelvic ascites or fluid collection. Right ovary measures 2.6 x 2.4 x 2.5 cm for a volume of 8.2 mL. Left ovary measures 3.1 x 2.7 x 2.8 cm for a volume of 11.3 mL which includes a corpus luteal cyst measuring 1.7 cm. US/US pelvic and transvaginal IMPRESSION: Unremarkable pelvic ultrasound. Electronically signed by: Freddy Egan MD 07/16/2024 09:08 PM JERRICA
== END 2024-05-28 16:03 | disposition home or self-care (01) ==
LOC: HO.US 16:02
PROVIDERS: PCP Student in an Organized Health Care Education/Training Program; Visit Provider Obstetrics & Gynecology
DX: N83.209 Unspecified ovarian cyst, unspecified side (principal)
CPT/HCPCS: 76830; 76856

== ENCOUNTER 2024-07-18 15:35 | Outpatient (AMB) | payer MEDICAID, SELFPAY ==
[2024-07-18 15:46] VITALS: BMI 26.4
--- NOTE | 2024-07-18 15:46 | A.OFFVIS_ITS ---
Vital Signs 07/18/24 15:46 Height 5 ft 3 in Weight 149 lb BMI 26.4 Intake Visit Reasons: Ultra sound follow up Allergies No Known Allergies [No Known Allergies*] Allergy (Verified 04/30/24 15:11) HPI Comments Details: Presenting for follow-up pelvic ultrasound. Doing well with no complaints no pelvic pain or other concerns. Pelvic ultrasound done on 05/28/2020 showed the following: Uterus: The uterus is anteverted and measures 7.7 x 3.4 x 4.4 cm. The double wall endometrial thickness is 4 mm. The uterus is smooth in contour and has normal myometrial echogenicity. No visible fibroid. Nabothian cysts are present. Adnexa: Both ovaries are visualized. There is normal color flow to the adnexa. There is no ovarian torsion. There is no pelvic ascites or fluid collection. Right ovary measures 2.6 x 2.4 x 2.5 cm for a volume of 8.2 mL. Left ovary measures 3.1 x 2.7 x 2.8 cm for a volume of 11.3 mL which includes a corpus luteal cyst measuring 1.7 cm. [facility] Social History Alcohol intake: never Patient Tobacco Use Status: Never used Tobacco Gender identity: Female Female Reproductive History Menstrual Age of Menarche: 13 Physical Exam Vital Signs: BMI result Body Mass Index 26.4 Assessment & Plan Assessment & Plan (1) Ovarian cyst: Comment: Resolved Code(s): N83.209 - Unspecified ovarian cyst, unspecified side Category: Medical Plan: Discussed with the patient the finding on pelvic ultrasound showing no evidence of ovarian cyst, the patient was reassured. Instructions given to patient to call in case of pelvic pain or any other concerns. All questions answered, the patient verbalized understanding. Coding Level of Care Code Est Pt Level 3 (37848) Diagnoses Ovarian cyst N83.209
== END 2024-07-18 15:54 | disposition home or self-care (01) ==
PROVIDERS: Visit Provider Obstetrics & Gynecology
DX: N83.209 Unspecified ovarian cyst, unspecified side (principal)
CPT/HCPCS: 99213

== ENCOUNTER → 2024-07-18 15:35 | Outpatient (BNVA) | payer MEDICAID, SELFPAY | PROVIDERS: Visit Provider Obstetrics & Gynecology | DX: Z03.89 Encounter for observation for other suspected diseases and conditions ruled out (principal) | CPT/HCPCS: 99212 ==

== ENCOUNTER 2025-06-25 11:29 | Outpatient (REF) | payer MEDICAID, SELFPAY ==
[2025-06-25 14:50] LABS: CT PCR NOT DETECTED (Not Detect.); NG PCR NOT DETECTED (Not Detect.)
[2025-06-25 17:36] LABS: Bacterial Vaginosis PCR NEGATIVE (Negative); Candida Group PCR DETECTED (Not Detect); Candida glab krusei PCR NOT DETECTED (Not Detect); Trichomonas vaginalis PCR NOT DETECTED (Not Detect)
[2025-06-26 08:47] LABS: HBsAGNum1 0.28 S/CO (0.00-0.99); HIV Num 1 0.04 S/CO (0.00-0.99); Hepatitis B Surface Antigen Negative (Negative); ~HepC Num1 0.13 S/CO (0.00-0.79); ~Hepatitis C Antibody Nonreactive (Nonreactive)
[2025-06-26 09:16] LABS: Syphilis Screen Nonreactive (Nonreactive)
== END 2025-06-25 11:30 | disposition home or self-care (01) ==
LOC: HO.LAB 11:29
PROVIDERS: PCP Student in an Organized Health Care Education/Training Program; Visit Provider Obstetrics & Gynecology
DX: Z01.419 Encounter for gynecological examination (general) (routine) without abnormal findings (principal); Z11.59 Encounter for screening for other viral diseases; Z11.4 Encounter for screening for human immunodeficiency virus [HIV]; Z20.2 Contact with and (suspected) exposure to infections with a predominantly sexual mode of transmission
CPT/HCPCS: 81515; 86780; 86803; 87340; 87389; 87491; 87591; 87626; 88175; 99212; 99395

== ENCOUNTER 2025-06-25 11:29 | Outpatient (AMB) | payer MEDICAID, SELFPAY ==
--- NOTE | 2025-06-25 11:38 | MHC.OFFVIS ---
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 No complaints. The patient is interested in STD screen Last Pap 02/24 was negative PFSH Medical History Hyperlipidemia Family History Mother Diabetes HTN (hypertension) Father HTN (hypertension) Social History Household Members: Significant Other Household Members Other:: son Housing: House Alcohol intake: current Alcohol intake frequency: holidays/special occasions only Patient Tobacco Use Status: Never used Tobacco Current occupational status: unemployed Sexually active: Yes Sexual orientation: Straight/Heterosexual Gender identity: Female Female Reproductive History Menstrual Age of Menarche: 13 Total pregnancies: 3 Full term: 1 Number of Living Children: 1 Ab spontaneous: 2 Date of last pap smear: 02/22/21 Review of Systems Const All systems reviewed & are unremarkable except as noted in HPI and below Card Reports as per HPI Resp Reports as per HPI GI Reports as per HPI and Reports no additional complaints Reports as per HPI Physical Exam Vital Signs: Last Vital Signs BP 110/66 06/25/25 11:39 BMI result Body Mass Index 27.6 Const General: cooperative, healthy appearing and comfortable Chest Chest palpation & inspection: normal inspection of the chest and normal palpation of entire chest wall Breast/axilla inspection: normal inspection of the breasts and normal inspection of the axillae Breast/axilla palpation: normal palpation of the breasts, normal palpation of the axillae and no axillary lymphadenopathy Resp Effort & Inspection: normal respiratory effort Auscultation: clear to auscultation bilaterally Percussion: percussion normal Cardio Palpation: normal PMI Rate: regular rate Rhythm: regular rhythm Heart sounds: no murmurs and no rubs Peripheral pulses: Peripheral pulses 2+ throughout GI Inspection: Yes normal to inspection Palpation (GI): Soft to palpation, nontender, no guarding, not rigid and No hepatosplenomegaly present Percussion: Yes normal to percussion Auscultation: normal bowel sounds Rectal Exam - Female: deferred General: Yes bladder normal to palpation External Female Exam: No lesion Speculum Exam - Vagina: normal appearance of the vagina, normal palpation, normal vaginal discharge and not erythematous Speculum Exam - Cervix: normal appearance of the cervix and normal palpation Bimanual exam- vagina & uterus: normal bimanual exam, normal palpation, uterine size normal, bladder normal to palpation, consistency normal and normal palpation Bimanual Exam- Adnexa, other: normal adnexae, no masses and no tenderness Assessment & Plan Assessment & Plan (1) Well woman exam with routine gynecological exam: Code(s): Z01.419 - Encounter for gynecological examination (general) (routine) without abnormal findings Category: Medical Plan: Pap done. Counseled the patient about the recommended dietary allowance of 1000 mg of Calcium & 600 IU of vitamin D. The patient was instructed to perform monthly self-breast exams and to schedule an annual exam in a year; All questions answered and the patient verbalized understanding. Instructed the patient to schedule annual exam in a year (2) Screening for STD (sexually transmitted disease): Code(s): Z11.3 - Encounter for screening for infections with a predominantly sexual mode of transmission Category: Medical Plan: STD screening tests done includes: BV panel for trichomonas, GC/CT will send patient for serology std screening for HIV, RPR, Hep b s Ag, HepC Ab. Instructions given the patient to schedule a follow-up appointment for repeat serology screen in 6 months for possible false negatives. Orders: Orders HIV Ab/Ag Today Z20.2 - Contact with and (suspected) exposure to infections with a predominantly sexual mode of transmission Syphilis Screen Today Z20.2 - Contact with and (suspected) exposure to infections with a predominantly sexual mode of transmission Hepatitis C Antibody Today Z20.2 - Contact with and (suspected) exposure to infections with a predominantly sexual mode of transmission Hepatitis B Surface Antigen Today Z20.2 - Contact with and (suspected) exposure to infections with a predominantly sexual mode of transmission Coding Level of Care Code Est Pt Level 3 (16239) Est Pt Prev Care 18-39y(87527) Diagnoses Well woman exam with routine gynecological exam Z01.419 Screening for STD (sexually transmitted disease) Z11.3
[2025-06-25 11:39] VITALS: BP 110/66; BMI 27.6
== END 2025-06-25 12:39 | disposition home or self-care (01) ==
LOC: HO.HWS 11:29
PROVIDERS: Visit Provider Obstetrics & Gynecology
DX: Z01.419 Encounter for gynecological examination (general) (routine) without abnormal findings (principal); Z11.3 Encounter for screening for infections with a predominantly sexual mode of transmission
CPT/HCPCS: 99213; 99395; 99459